=== PATIENT | female | born 1945 | race Caucasian/White ===

== ENCOUNTER 2017-11-17 16:29 | Emergency (ER) | payer MEDICARE ==
[2017-11-17 16:30] VITALS: BMI 30.7
[2017-11-17 17:09] VITALS: BP 174/94; PULSE 94; RESP 16; TEMP 97.8; O2SAT 98
--- NOTE | 2017-11-17 18:33 | ED PDOC ---
HPI: Female Pain Chief Complaint (Provider): Female Genitourinary History Per: Patient History/Exam Limitations: no limitations Onset/Duration Of Symptoms: Days (1x month), Worse Since (1x week) Current Symptoms Are (Timing): Still Present Severity: Moderate Additional Complaint(s): 72 year old female with a past medical history of hypertension presents to the ED with complaints of urinary symptoms that started 1x month ago. Patient states she has had increased frequency and urgency with urination for the past month, and mild dysuria for the past 1x week. Patient went to her PMD 1x month ago upon onset of symptoms and was prescribed pyridium and cipro, and has been off the antibiotics for 3x weeks but has had no improvement of symptoms. Patient denies having fevers or abdominal pain. PMD: Denys Pisano MD <Radha Cowan - Last Filed: 11/17/17 23:06> <Joellen Santos - Last Filed: 11/20/17 12:08> Time Seen by Provider: 11/17/17 17:20 Chief Complaint (Nursing): Female Genitourinary Past Medical History Reviewed: Historical Data, Nursing Documentation, Vital Signs Vital Signs: Last Vital Signs Temp 97.8 F 11/17/17 17:06 Pulse 94 H 11/17/17 17:06 Resp 16 11/17/17 17:06 BP 174/94 H 11/17/17 17:06 Pulse Ox 98 11/17/17 17:06 - Medical History PMH: Emphysema, HTN - Family History Family History: States: No Known Family Hx - Immunization History Hx Tetanus Toxoid Vaccination: No Hx Influenza Vaccination: No Hx Pneumococcal Vaccination: No <Radha Cowan - Last Filed: 11/17/17 23:06> Vital Signs: Last Vital Signs Temp 97.8 F 11/17/17 17:06 Pulse 94 H 11/17/17 17:06 Resp 16 11/17/17 17:06 BP 174/94 H 11/17/17 17:06 Pulse Ox 98 11/17/17 23:07 <Joellen Santos - Last Filed: 11/20/17 12:08> - Home Medications Home Medications: Ambulatory Orders Medication Instructions Recorded Acetaminophen/Hydrocodone Bi 1 tab PO QID PRN #15 tab 09/26/14 [Vicodin 300 mg-5 mg] Hydromorphone Hydrochloride 2 mg PO Q8 PRN #10 tab 11/11/13 [Dilaudid] Ondansetron HCl [Zofran] 4 mg PO Q6 PRN #14 ml 11/11/13 RX: Naproxen 375 mg PO Q8 PRN #15 tab 10/06/15 - Allergies Allergies/Adverse Reactions: Allergies Allergy/AdvReac Type Severity Reaction Status Date / Time No Known Allergies Allergy Verified 11/17/17 17:05 Review of Systems ROS Statement: Except As Marked, All Systems Reviewed And Found Negative Constitutional: Negative for: Fever Gastrointestinal: Negative for: Abdominal Pain Genitourinary Female: Positive for: Dysuria, Frequency (and urgency) <Radha Cowan S - Last Filed: 11/17/17 23:06> Physical Exam - Reviewed Nursing Documentation Reviewed: Yes Vital Signs Reviewed: Yes - Physical Exam Appears: Positive for: Well, Non-toxic, No Acute Distress Head Exam: Positive for: ATRAUMATIC, NORMOCEPHALIC Cardiovascular/Chest: Positive for: Regular Rate, Rhythm Respiratory: Positive for: Normal Breath Sounds Gastrointestinal/Abdominal: Positive for: Normal Exam, Soft, Other (mild suprapubic tenderness, otherwise abdomen is non tender.) Neurologic/Psych: Positive for: Alert, Oriented (3x) <Radha Cowan S - Last Filed: 11/17/17 23:06> - ECG O2 Sat by Pulse Oximetry: 98 (RA) Pulse Ox Interpretation: Normal <Radha Cowan S - Last Filed: 11/17/17 23:06> Medical Decision Making Medical Decision Makin:20 Initial impression: 72 year old female with urinary symptoms. Initial plan: * urinalysis * reevaluation * UA negative. * fingerstick 65 Pt. well appearing, abd. soft/nt, afebrile. Scribe Attestation: Documented by Joellen Romo, acting as a scribe for Radha Cowan PA-C. Provider Scribe Attestation: All medical record entries made by the Scribe were at my direction and personally dictated by me. I have reviewed the chart and agree that the record accurately reflects my personal performance of the history, physical exam, medical decision making, and the department course for this patient. I have also personally directed, reviewed, and agree with the discharge instructions and disposition. <Radha Cowan - Last Filed: 11/17/17 23:06> Disposition - Disposition Disposition: Routine/Home Disposition Time: 21:30 <Radha Cowan - Last Filed: 11/17/17 23:06> <Joellen Santos - Last Filed: 11/20/17 12:08> - Clinical Impression Clinical Impression: Cystitis - Disposition Condition: STABLE Forms: [facility] (Yoruba) Addendum Addendum: 11/20/17 12:08 reviewed PA chart. Agree with assessment and plan. <Joellen Santos - Last Filed: 11/20/17 12:08>
[2017-11-17 19:15] LABS: SQUAMOUS EPITHIAL 3 /hpf (0-5); URINE BACTERIA MANY (<OCC); URINE BILIRUBIN NEGATIVE (NEGATIVE); URINE BLOOD NEGATIVE (NEGATIVE); URINE CLARITY CLEAR (Clear); URINE COLOR YELLOW (YELLOW); URINE GLUCOSE (UA) NEG (Normal); URINE LEUKOCYTE ESTERASE NEG Leu/uL (Negative); URINE PROTEIN NEGATIVE (NEGATIVE); URINE UROBILINOGEN 0.2-1.0 mg/dL (0.2-1.0)
== END 2017-11-17 21:00 | disposition home or self-care (01) ==
LOC: H.ER 16:29
DX: N30.90 Cystitis, unspecified without hematuria (principal); I10 Essential (primary) hypertension

== ENCOUNTER 2018-03-15 10:18 | Inpatient (IN) | payer MEDICARE ==
[2018-03-15 10:18] VITALS: BMI 30.7
[2018-03-15] MEDS ORDERED: Albuterol-Ipratrop 3 mg / 0.5 (3 ml) UD IH STA ×2 (10:49→10:50)
--- NOTE | 2018-03-15 10:54 | ED PDOC ---
HPI: SOB/CHF/COPD Time Seen by Provider: 03/15/18 10:33 History Per: Patient Onset/Duration Of Symptoms: Days (2) Current Symptoms Are (Timing): Still Present Quality: Tightness Current Respiratory Medications: See Home Med List Severity: Moderate Associated Symptoms: Productive Cough. denies: Fever Recently: Treated By A Physician Additional Complaint(s): SOB assoc with wheezing and productive cough, worse since yesterday. Denies fever. No improvement with home nebs. Denies chest pain. Past Medical History Vital Signs: Last Vital Signs Temp 97.8 F 03/15/18 10:39 Pulse 102 H 03/15/18 10:39 Resp 26 H 03/15/18 10:39 BP 129/81 03/15/18 10:39 Pulse Ox 98 03/15/18 10:39 - Medical History PMH: Emphysema, HTN - Family History Family History: States: Unknown Family Hx - Immunization History Hx Tetanus Toxoid Vaccination: No Hx Influenza Vaccination: No Hx Pneumococcal Vaccination: No - Home Medications Home Medications: Ambulatory Orders Medication Instructions Recorded Albuterol 0.083% [Albuterol 0.083% 3 ml IH Q6 PRN 03/15/18 Inhal Stacia (2.5 mg/3 ml) UD] Albuterol Sulfate [Ventolin Hfa] 2 puff IH Q6 PRN 03/15/18 Budesonide/Formoterol Fumarate 2 puff IH Q12 03/15/18 [Symbicort 160-4.5 Mcg Inhaler] Losartan/Hydrochlorothiazide 1 tab PO DAILY 03/15/18 [Hyzaar 100-12.5 Tablet] Metoprolol Tartrate [Lopressor] 50 mg PO Q12 03/15/18 - Allergies Allergies/Adverse Reactions: Allergies Allergy/AdvReac Type Severity Reaction Status Date / Time No Known Allergies Allergy Verified 11/17/17 17:05 Review of Systems ROS Statement: Except As Marked, All Systems Reviewed And Found Negative Constitutional: Negative for: Fever, Chills Cardiovascular: Negative for: Chest Pain Respiratory: Positive for: Cough, Shortness of Breath, Wheezing Physical Exam - Reviewed Nursing Documentation Reviewed: Yes Vital Signs Reviewed: Yes - Physical Exam Appears: Positive for: Non-toxic, No Acute Distress Head Exam: Positive for: ATRAUMATIC, NORMAL INSPECTION, NORMOCEPHALIC Skin: Positive for: Normal Color, Warm, DRY Eye Exam: Positive for: EOMI, Normal appearance, PERRL ENT: Positive for: Normal ENT Inspection Neck: Positive for: Normal, Painless ROM Cardiovascular/Chest: Positive for: Regular Rate, Rhythm, Tachycardia Respiratory: Positive for: Decreased Breath Sounds, Rhonchi, Respiratory Distress (Mild). Negative for: Wheezing Gastrointestinal/Abdominal: Positive for: Normal Exam, Soft Back: Positive for: Normal Inspection Extremity: Positive for: Normal ROM. Negative for: Calf Tenderness, Swelling Neurologic/Psych: Positive for: Alert, Oriented - Laboratory Results Result Diagrams: 03/15/18 11:45 - ECG O2 Sat by Pulse Oximetry: 98 Medical Decision Making Medical Decision Making: SOB, wheezing, failed outpt tx. Will tx with nebs and steroids as well as vapotherm. Will r/o flu as well as pneumonia Disposition - Clinical Impression Clinical Impression: Moderate COPD (chronic obstructive pulmonary disease), Influenza A - Patient ED Disposition Is Patient to be Admitted: Yes - Disposition Disposition Time: 12:58 Condition: FAIR - Pt Status Changed To: Hospital Disposition Of: Inpatient - Admit Certification Admit to Inpatient:: After my assessment, the patient will require hospitalization for at least two midnights. This is because of the severity of symptoms shown, intensity of services needed, and/or the medical risk in this patient being treated as an outpatient. - POA Present On Arrival: None
[2018-03-15] MEDS ORDERED: Albuterol-Ipratrop 3 mg / 0.5 (3 ml) UD ONE (11:06)
--- NOTE | 2018-03-15 11:14 | RAD ---
Date of service: 03/15/2018 HISTORY: SOB, cough COMPARISON: 11/09/2013 TECHNIQUE: Chest PA and lateral FINDINGS: LUNGS: No active pulmonary disease. PLEURA: No significant pleural effusion identified. No pneumothorax apparent. CARDIOVASCULAR: There is presence of aortic atherosclerotic calcification on x-ray. Possible mild cardiomegaly No significant or acute findings to account for/ related to the clinical presentation. OSSEOUS STRUCTURES: Scoliosis VISUALIZED UPPER ABDOMEN: Normal. OTHER FINDINGS: None. IMPRESSION: No active disease. No interval pathology noted.
[2018-03-15 11:56] LABS: VENOUS BLOOD GAS BASE EXCESS 1.2 mmol/L (0.0-2.0); VENOUS BLOOD GAS PCO2 44 mmHg (40-60); VENOUS BLOOD GAS PO2 38 mm/Hg (30-55); VENOUS BLOOD PH 7.39 (7.32-7.43)
[2018-03-15 12:15] LABS: BASO # 0.1 K/uL (0.0-0.2); BASO % 0.6 % (0.0-2.0); EOS # 0.1 K/uL (0.0-0.7); HEMOGLOBIN 13.8 g/dL (12.0-16.0); LYMPH % 11.8 % (20.0-40.0); MEAN CELL VOLUME 90.5 fl (81.0-99.0); MEAN CORPUSCULAR HGB CONC 33.2 g/dL (33.0-37.0); MEAN PLATELET VOLUME 9.4 fl (7.2-11.7); MONO # 0.6 K/uL (0.0-0.8); MONO % 6.8 % (0.0-10.0); NEUT # 6.8 K/uL (1.8-7.0); NEUT % 79.8 % (50.0-75.0); RBC 4.6 Mil/uL (3.80-5.20); WHITE BLOOD COUNT 8.6 K/uL (4.8-10.8)
[2018-03-15] MEDS ORDERED: Sodium Chloride 0.9% 1,000 ML IV STA (12:54)
[2018-03-15 13:35] LABS: ALB/GLOB RATIO 1.1 (1.0-2.1); ALBUMIN 4.4 g/dL (3.5-5.0); ALT/SGPT 21 U/L (9-52); AST/SGOT 30 U/L (14-36); BLOOD UREA NITROGEN 32 mg/dl (7-17); CALCIUM 9.7 mg/dL (8.4-10.2); GFR NON-AFRICAN AMERICAN 55
[2018-03-15] MEDS ORDERED: Sodium Chloride 3% for Inhalation 4 ML VIAL.NEB IH PRN (16:20)
[2018-03-15] MEDS ORDERED: methylPREDNISolone 60 MG in Sodium Chloride 0.9% 50 ML IVPB SCH (17:00)
[2018-03-15] MEDS: Fluticasone-Salmeterol 100-50mcg Diskus IH SCH (18:15)
[2018-03-15] MEDS: levoFLOXacin 500 mg in D5W 500 MG/100 ML BAG IVPB SCH (18:16)
[2018-03-15] MEDS: Promethazine 12.5 mg/10 ml Syrup PO PRN (18:16)
--- NOTE | 2018-03-15 20:31 | CARD ---
APPROVED REPORT Date of service: 03/15/2018 EKG Measurement Heart [id number] <Conclusion> Sinus tachycardia Left axis deviation Left bundle branch block Abnormal ECG
[2018-03-16] MEDS: Albuterol-Ipratrop 3 mg / 0.5 (3 ml) UD INH SCH ×5 (00:27→19:25)
[2018-03-16 05:51] LABS: ABG ALLEN TEST YES; ARTERIAL BLOOD GAS HCO3 25.5 mmol/L (21-28); ARTERIAL BLOOD GAS HEMOGLOBIN 13.2 g/dL (11.7-17.4); ARTERIAL BLOOD GAS O2 CAPACITY 18.2 mL/dL (16-24); ARTERIAL BLOOD GAS O2 SAT 98.7 % (95-98); ARTERIAL BLOOD GAS PCO2 34 mm/Hg (35-45); ARTERIAL BLOOD GAS PH 7.46 (7.35-7.45); ARTERIAL BLOOD GAS PO2 97 mm/Hg (80-100); ARTERIAL BLOOD GAS TCO2 25.2 mmol/L (22-28)
[2018-03-16 07:20] LABS: BASO % 0.1 % (0.0-2.0); HEMOGLOBIN 12.4 g/dL (12.0-16.0); LYMPH # 0.8 K/uL (1.0-4.3); MEAN CELL VOLUME 89.8 fl (81.0-99.0); MEAN CORPUSCULAR HEMOGLOBIN 30.2 pg (27.0-31.0); MEAN CORPUSCULAR HGB CONC 33.6 g/dL (33.0-37.0); MEAN PLATELET VOLUME 9.1 fl (7.2-11.7); MONO # 0.1 K/uL (0.0-0.8); MONO % 2.2 % (0.0-10.0); NEUT # 3.3 K/uL (1.8-7.0); NEUT % 78.7 % (50.0-75.0); NRBC % 0.1 % (0.0-0.0); RBC 4.13 Mil/uL (3.80-5.20); RED CELL DISTRIBUTION WIDTH 12.9 % (11.5-14.5); WHITE BLOOD COUNT 4.2 K/uL (4.8-10.8)
[2018-03-16 07:30] LABS: ALB/GLOB RATIO 1.1 (1.0-2.1); ALT/SGPT 22 U/L (9-52); AST/SGOT 25 U/L (14-36); BLOOD UREA NITROGEN 29 mg/dl (7-17); CALCIUM 9.5 mg/dL (8.4-10.2); GFR NON-AFRICAN AMERICAN > 60
--- NOTE | 2018-03-16 08:42 | CP.PCM.HP ---
History of Present Illness - History of Present Illness History of Present Illness: 72 YR OLD FEMALE ADMITTED WITH PROGRESSIVELY WORSENING SHORTNESS OF BREATH,COUGH AND CHEST TIGHTNESS X SEVERAL DAYS.SHE WAS DIAGNOSED WITH FLU AND COPD EXACERBATION IN THE ER. HX OF COPD,HTN AND ANXIETY. 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[employer] Present on Admission - Present on Admission Any Indicators Present on Admission: No Past Patient History - Infectious Disease Hx of Infectious Diseases: None - Past Medical History & Family History Past Medical History?: Yes - Past Social History Smoking Status: Former Smoker - CARDIAC Hx Cardiac Disorders: Yes Hx Hypertension: Yes - PULMONARY Hx Respiratory Disorders: Yes Hx Chronic Obstructive Pulmonary Disease (COPD): Yes Hx Emphysema: Yes - NEUROLOGICAL Hx Neurological Disorder: No - HEENT Hx HEENT Problems: Yes Other/Comment: hard of hearing - RENAL Hx Chronic Kidney Disease: No - ENDOCRINE/METABOLIC Hx Endocrine Disorders: No - HEMATOLOGICAL/ONCOLOGICAL Hx Blood Disorders: No - INTEGUMENTARY Hx Dermatological Problems: No - MUSCULOSKELETAL/RHEUMATOLOGICAL Hx Musculoskeletal Disorders: No Hx Falls: No - GASTROINTESTINAL Hx Gastrointestinal Disorders: No - GENITOURINARY/GYNECOLOGICAL Hx Genitourinary Disorders: No - PSYCHIATRIC Hx Psychophysiologic Disorder: No Hx Substance Use: No - SURGICAL HISTORY Hx Surgeries: No - ANESTHESIA Hx Anesthesia: No Meds Allergies/Adverse Reactions: Allergies Allergy/AdvReac Type Severity Reaction Status Date / Time No Known Allergies Allergy Verified 11/17/17 17:05 Physical Exam - Constitutional Appears: No Acute Distress - Head Exam Head Exam: ATRAUMATIC, NORMAL INSPECTION, NORMOCEPHALIC - Eye Exam Eye Exam: EOMI, Normal appearance, PERRL Pupil Exam: NORMAL ACCOMODATION, PERRL - ENT Exam ENT Exam: Mucous Membranes Moist, Normal Exam - Neck Exam Neck exam: Positive for: Normal Inspection - Respiratory Exam Respiratory Exam: Decreased Breath Sounds, Prolonged Expiratory Phase, Rales, Wheezes - Cardiovascular Exam Cardiovascular Exam: REGULAR RHYTHM - GI/Abdominal Exam GI & Abdominal Exam: Normal Bowel Sounds, Soft. absent: Tenderness - Rectal Exam Rectal Exam: NORMAL INSPECTION - Extremities Exam Extremities exam: Positive for: normal inspection - Back Exam Back exam: NORMAL INSPECTION - Neurological Exam Neurological exam: Alert, CN II-XII Intact, Normal Gait, Oriented x3, Reflexes Normal - Psychiatric Exam Psychiatric exam: Normal Affect, Normal Mood - Skin Skin Exam: Dry, Intact, Normal Color, Warm Results - Vital Signs Recent Vital Signs: Last Vital Signs Temp 97.8 F 01/31/19 00:09 Pulse 80 03/16/18 00:28 Resp 18 03/16/18 07:29 BP 114/71 03/16/18 00:09 Pulse Ox 100 03/16/18 00:09 - Labs Result Diagrams: 03/16/18 06:25 03/16/18 06:25 Labs: Laboratory Results - last 24 hr 03/15/18 03/15/18 03/15/18 11:45 11:45 11:45 WBC 8.6 RBC 4.60 Hgb 13.8 Hct 41.6 MCV 90.5 MCH 30.0 MCHC 33.2 RDW 13.0 Plt Count 251 MPV 9.4 Neut % (Auto) 79.8 H Lymph % (Auto) 11.8 L Cass % (Auto) 6.8 Eos % (Auto) 1.0 Baso % (Auto) 0.6 Neut # (Auto) 6.8 Lymph # (Auto) 1.0 Cass # (Auto) 0.6 Eos # (Auto) 0.1 Baso # (Auto) 0.1 pCO2 pO2 38 HCO3 ABG pH ABG Total CO2 ABG O2 Saturation ABG O2 Content ABG Base Excess ABG Hemoglobin ABG Carboxyhemoglobin POC ABG HHb (Measured) ABG Methemoglobin ABG O2 Capacity Carloz Test VBG pH 7.39 VBG pCO2 44 VBG HCO3 25.2 VBG Total CO2 28.0 VBG O2 Sat (Calc) 74.2 H VBG Base Excess 1.2 VBG Potassium 3.7 A-a O2 Difference Hgb O2 Saturation Sodium 134.0 Chloride 100.0 Glucose 107 H Lactate 2.0 Liter Flow Vent Mode FiO2 21.0 Potassium Carbon Dioxide Anion Gap BUN Creatinine Est GFR ( Amer) Est GFR (Non-Af Amer) Random Glucose Calcium Total Bilirubin AST ALT Alkaline Phosphatase Troponin I Total Protein Albumin Globulin Albumin/Globulin Ratio Venous Blood Potassium 3.7 Influenza Typ A,B (EIA) Pos for influenza a H 03/15/18 03/16/18 03/16/18 13:19 05:42 06:25 WBC 4.2 L D RBC 4.13 Hgb 12.4 Hct 37.1 MCV 89.8 MCH 30.2 MCHC 33.6 RDW 12.9 Plt Count 219 MPV 9.1 Neut % (Auto) 78.7 H Lymph % (Auto) 19.0 L Cass % (Auto) 2.2 Eos % (Auto) 0.0 Baso % (Auto) 0.1 Neut # (Auto) 3.3 Lymph # (Auto) 0.8 L Cass # (Auto) 0.1 Eos # (Auto) 0.0 Baso # (Auto) 0.0 pCO2 34 L pO2 97 HCO3 25.5 ABG pH 7.46 H ABG Total CO2 25.2 ABG O2 Saturation 98.7 H ABG O2 Content 18.0 ABG Base Excess 0.8 ABG Hemoglobin 13.2 ABG Carboxyhemoglobin 1.0 POC ABG HHb (Measured) 1.3 ABG Methemoglobin 1.0 ABG O2 Capacity 18.2 Carolz Test Yes VBG pH VBG pCO2 VBG HCO3 VBG Total CO2 VBG O2 Sat (Calc) VBG Base Excess VBG Potassium A-a O2 Difference 146.0 Hgb O2 Saturation 96.7 Sodium 137 Chloride 95 L Glucose Lactate Liter Flow 20 Vent Mode High flow lpm FiO2 40.0 Potassium 3.5 L Carbon Dioxide 26 Anion Gap 20 BUN 32 H Creatinine 1.0 Est GFR ( Amer) > 60 Est GFR (Non-Af Amer) 55 Random Glucose 107 H Calcium 9.7 Total Bilirubin 0.6 AST 30 ALT 21 Alkaline Phosphatase 110 Troponin I 0.0210 Total Protein 8.2 Albumin 4.4 Globulin 3.9 Albumin/Globulin Ratio 1.1 Venous Blood Potassium Influenza Typ A,B (EIA) 03/16/18 06:25 WBC RBC Hgb Hct MCV MCH MCHC RDW Plt Count MPV Neut % (Auto) Lymph % (Auto) Cass % (Auto) Eos % (Auto) Baso % (Auto) Neut # (Auto) Lymph # (Auto) Cass # (Auto) Eos # (Auto) Baso # (Auto) pCO2 pO2 HCO3 ABG pH ABG Total CO2 ABG O2 Saturation ABG O2 Content ABG Base Excess ABG Hemoglobin ABG Carboxyhemoglobin POC ABG HHb (Measured) ABG Methemoglobin ABG O2 Capacity Carloz Test VBG pH VBG pCO2 VBG HCO3 VBG Total CO2 VBG O2 Sat (Calc) VBG Base Excess VBG Potassium A-a O2 Difference Hgb O2 Saturation Sodium 136 Chloride 97 L Glucose Lactate Liter Flow Vent Mode FiO2 Potassium 3.8 Carbon Dioxide 25 Anion Gap 18 BUN 29 H Creatinine 0.8 Est GFR ( Amer) > 60 Est GFR (Non-Af Amer) > 60 Random Glucose 163 H Calcium 9.5 Total Bilirubin 0.2 AST 25 ALT 22 Alkaline Phosphatase 85 Troponin I Total Protein 7.5 Albumin 4.0 Globulin 3.5 Albumin/Globulin Ratio 1.1 Venous Blood Potassium Influenza Typ A,B (EIA) Assessment & Plan - Assessment and Plan (Free Text) Assessment: ACUTE EXACERBATION OF COPD INFLUENZA HYPERTENSION Plan: CONTINUE RX ORDERED - Date & Time Date: 03/16/18 Time: 08:44
[2018-03-16] MEDS ORDERED: Patient's Own Med (Losartan/Hydrochlorothiazide [Hyzaar 100-12.5 Tablet] 1 TAB) PO SCH (09:00)
[2018-03-16] MEDS: Fluticasone-Salmeterol 100-50mcg Diskus IH SCH ×2 (10:13→16:31)
[2018-03-16] MEDS: levoFLOXacin 500 mg in D5W 500 MG/100 ML BAG IVPB SCH (10:14)
[2018-03-17] MEDS: Albuterol-Ipratrop 3 mg / 0.5 (3 ml) UD INH SCH ×4 (01:01→19:11)
[2018-03-17] MEDS: levoFLOXacin 500 mg in D5W 500 MG/100 ML BAG IVPB SCH (11:04)
[2018-03-17] MEDS: Fluticasone-Salmeterol 100-50mcg Diskus IH SCH ×2 (11:06→16:02)
--- NOTE | 2018-03-17 12:33 | CP.PCM.PN ---
Subjective - Date & Time of Evaluation Date of Evaluation: 03/17/18 Time of Evaluation: 12:33 - Subjective Subjective: C/O BACK PAINS AND SORE THROAT COUGH IMPROVED Objective - Vital Signs/Intake and Output Vital Signs (last 24 hours): Temp Pulse Resp BP Pulse Ox 98 F 97 H 20 96/58 L 98 03/17/18 08:20 03/17/18 11:30 03/17/18 08:20 03/17/18 11:30 03/17/18 08:20 - Medications Medications: Current Medications Acetaminophen (Tylenol 325mg Tab) 650 mg PO Q4 PRN PRN Reason: Headache Last Admin: 03/15/18 18:40 Dose: 650 mg Acetaminophen (Tylenol 325mg Tab) 650 mg PO Q6 PRN PRN Reason: Pain, moderate (4-7) Last Admin: 03/16/18 20:37 Dose: 650 mg Albuterol/Ipratropium (Duoneb 3 Mg/0.5 Mg (3 Ml) Ud) 3 ml INH RQ6 CONNIE Last Admin: 03/17/18 07:00 Dose: 3 ml Hydrochlorothiazide (Microzide) 12.5 mg PO DAILY [facility] Last Admin: 03/17/18 11:30 Dose: Not Given Levofloxacin/Dextrose (Levaquin 500mg) 500 mg in 100 mls @ 100 mls/hr IVPB DAILY CONNIE; Protocol Last Admin: 03/17/18 11:04 Dose: 100 mls/hr Losartan Potassium (Cozaar) 100 mg PO DAILY [facility] Last Admin: 03/17/18 11:29 Dose: Not Given Methylprednisolone (Solu-Medrol) 60 mg IVP Q8 CONNIE Last Admin: 03/17/18 11:32 Dose: 60 mg Metoprolol Tartrate (Lopressor) 50 mg PO Q12 CONNIE Last Admin: 03/17/18 11:30 Dose: Not Given Oseltamivir Phosphate (Tamiflu Cap) 75 mg PO BID CONNIE; Protocol Last Admin: 03/17/18 11:05 Dose: 75 mg Promethazine HCl (Phenergan Syrup) 12.5 mg PO Q6 PRN PRN Reason: Cough Last Admin: 03/15/18 18:16 Dose: 12.5 mg Fluticasone/Salmeterol (Advair Diskus 100/50) 1 puff IH BID [facility] Last Admin: 03/17/18 11:06 Dose: 1 puff - Labs Labs: 03/16/18 06:25 03/16/18 06:25 - Constitutional Appears: No Acute Distress - Head Exam Head Exam: ATRAUMATIC, NORMAL INSPECTION, NORMOCEPHALIC - Eye Exam Eye Exam: EOMI, Normal appearance, PERRL Pupil Exam: NORMAL ACCOMODATION, PERRL - ENT Exam ENT Exam: Mucous Membranes Moist, Normal Exam - Neck Exam Neck Exam: Full ROM, Normal Inspection. absent: Lymphadenopathy - Respiratory Exam Respiratory Exam: Prolonged Expiratory Phase, Wheezes, NORMAL BREATHING PATTERN - Cardiovascular Exam Cardiovascular Exam: REGULAR RHYTHM, +S1, +S2. absent: Murmur - GI/Abdominal Exam GI & Abdominal Exam: Soft, Normal Bowel Sounds. absent: Tenderness - Rectal Exam Rectal Exam: NORMAL INSPECTION - Extremities Exam Extremities Exam: Full ROM, Normal Capillary Refill, Normal Inspection. absent: Joint Swelling, Pedal Edema - Back Exam Back Exam: NORMAL INSPECTION - Neurological Exam Neurological Exam: Alert, Awake, CN II-XII Intact, Normal Gait, Oriented x3 - Psychiatric Exam Psychiatric exam: Normal Affect, Normal Mood - Skin Skin Exam: Dry, Intact, Normal Color, Warm Assessment and Plan - Assessment and Plan (Free Text) Assessment: ACUTE EXAC OF COPD FLU HTN Plan: CONTINUE RX ORDERED
[2018-03-17] MEDS: Phenol 1.4% Throat Spray MT SCH ×2 (15:59→16:03)
[2018-03-17] MEDS: Promethazine 12.5 mg/10 ml Syrup PO PRN (21:43)
[2018-03-18] MEDS: Albuterol-Ipratrop 3 mg / 0.5 (3 ml) UD INH SCH ×4 (01:01→19:21)
[2018-03-18] MEDS: levoFLOXacin 500 mg in D5W 500 MG/100 ML BAG IVPB SCH (10:32)
[2018-03-18] MEDS: Fluticasone-Salmeterol 100-50mcg Diskus IH SCH ×2 (11:13→18:58)
--- NOTE | 2018-03-18 11:49 | CP.PCM.PN ---
Subjective - Date & Time of Evaluation Date of Evaluation: 03/18/18 Time of Evaluation: 11:49 - Subjective Subjective: FEELS BETTER SOB AND COUGH IMPROVED Objective - Vital Signs/Intake and Output Vital Signs (last 24 hours): Temp Pulse Resp BP Pulse Ox 97.6 F 89 19 138/73 100 03/18/18 08:28 03/18/18 10:36 03/18/18 11:05 03/18/18 10:36 03/18/18 08:28 - Medications Medications: Current Medications Acetaminophen (Tylenol 325mg Tab) 650 mg PO Q4 PRN PRN Reason: Headache Last Admin: 03/15/18 18:40 Dose: 650 mg Acetaminophen (Tylenol 325mg Tab) 650 mg PO Q6 PRN PRN Reason: Pain, moderate (4-7) Last Admin: 03/16/18 20:37 Dose: 650 mg Albuterol/Ipratropium (Duoneb 3 Mg/0.5 Mg (3 Ml) Ud) 3 ml INH RQ6 CONNIE Last Admin: 03/18/18 07:07 Dose: 3 ml Hydrochlorothiazide (Microzide) 12.5 mg PO DAILY [facility] Last Admin: 03/18/18 10:33 Dose: 12.5 mg Levofloxacin/Dextrose (Levaquin 500mg) 500 mg in 100 mls @ 100 mls/hr IVPB DAILY [facility]; Protocol Last Admin: 03/18/18 10:32 Dose: 100 mls/hr Losartan Potassium (Cozaar) 100 mg PO DAILY [facility] Last Admin: 03/18/18 10:27 Dose: 100 mg Methylprednisolone (Solu-Medrol) 60 mg IVP Q8 CONNIE Last Admin: 03/18/18 10:37 Dose: 60 mg Metoprolol Tartrate (Lopressor) 50 mg PO Q12 CONNIE Last Admin: 03/18/18 10:36 Dose: 50 mg Naproxen (Naprosyn Tab) 250 mg PO Q8 CONNIE Last Admin: 03/18/18 10:33 Dose: 250 mg Oseltamivir Phosphate (Tamiflu Cap) 75 mg PO BID CONNIE; Protocol Last Admin: 03/18/18 10:34 Dose: 75 mg Phenol/Menthol (Phenaseptic 1.4% Throat [place]) 1 spry MT TID [facility] Last Admin: 03/17/18 16:03 Dose: 1 spr Promethazine HCl (Phenergan Syrup) 12.5 mg PO Q6 PRN PRN Reason: Cough Last Admin: 03/17/18 21:43 Dose: 12.5 mg Fluticasone/Salmeterol (Advair Diskus 100/50) 1 puff IH BID CONNIE Last Admin: 03/18/18 11:13 Dose: 1 puff - Labs Labs: 03/16/18 06:25 03/16/18 06:25 - Constitutional Appears: No Acute Distress - Head Exam Head Exam: ATRAUMATIC, NORMAL INSPECTION, NORMOCEPHALIC - Eye Exam Eye Exam: EOMI, Normal appearance, PERRL Pupil Exam: NORMAL ACCOMODATION, PERRL - ENT Exam ENT Exam: Mucous Membranes Moist, Normal Exam - Neck Exam Neck Exam: Full ROM, Normal Inspection. absent: Lymphadenopathy - Respiratory Exam Respiratory Exam: Clear to Ausculation Bilateral, Prolonged Expiratory Phase, NORMAL BREATHING PATTERN - Cardiovascular Exam Cardiovascular Exam: REGULAR RHYTHM, +S1, +S2. absent: Murmur - GI/Abdominal Exam GI & Abdominal Exam: Soft, Normal Bowel Sounds. absent: Tenderness - Rectal Exam Rectal Exam: NORMAL INSPECTION - Extremities Exam Extremities Exam: Full ROM, Normal Capillary Refill, Normal Inspection. absent: Joint Swelling, Pedal Edema - Back Exam Back Exam: NORMAL INSPECTION - Neurological Exam Neurological Exam: Alert, Awake, CN II-XII Intact, Normal Gait, Oriented x3 - Psychiatric Exam Psychiatric exam: Normal Affect, Normal Mood - Skin Skin Exam: Dry, Intact, Normal Color, Warm Assessment and Plan - Assessment and Plan (Free Text) Assessment: COPD IMPROVING FLU HTN Plan: TAPER STEROIDS D/C HIGH FLOW O2 BEGIN O2 VIA NC D/C IN AM IF STABLE
[2018-03-18] MEDS ORDERED: MethylPREDNISolone 40 mg Vial IVP SCH (12:00)
[2018-03-18] MEDS ORDERED: methylPREDNISolone 40 MG in Sodium Chloride 0.9% 50 ML IVPB SCH (12:00)
[2018-03-18] MEDS: Phenol 1.4% Throat Spray MT SCH ×2 (16:22→19:00)
[2018-03-18] MEDS: MethylPREDNISolone 40 mg Vial IVP SCH (21:18)
[2018-03-19 01:03] VITALS: RESP 18
[2018-03-19] MEDS: Albuterol-Ipratrop 3 mg / 0.5 (3 ml) UD INH SCH ×2 (01:05→08:54)
[2018-03-19] MEDS: Fluticasone-Salmeterol 100-50mcg Diskus IH SCH (08:59)
[2018-03-19] MEDS: levoFLOXacin 500 mg in D5W 500 MG/100 ML BAG IVPB SCH (08:59)
[2018-03-19] MEDS: Phenol 1.4% Throat Spray MT SCH (09:02)
[2018-03-19] MEDS: MethylPREDNISolone 40 mg Vial IVP SCH (09:09)
[2018-03-19 09:10] VITALS: BP 143/77; PULSE 86; TEMP 98; O2SAT 94
--- NOTE | 2018-03-19 11:05 | CP.PCM.DIS ---
Provider - Provider Date of Admission: 03/15/18 12:55 Attending physician: Denys Garcia MD Time Spent in preparation of Discharge (in minutes): 30 Diagnosis - Discharge Diagnosis (1) Influenza A Status: Resolved Priority: High Comment: influenza treated with tamiflu. symptoms resolved (2) Moderate COPD (chronic obstructive pulmonary disease) Status: Acute Priority: High Comment: symptoms of sob and hypoxemia improved with rx. will d/c home today on appropriate meds. no need for home o2 since hypoxemia has resolved Hospital Course - Lab Results Lab Results: Micro Results 03/16/18 12:15 Sputum Gram Stain - Final 03/16/18 12:15 Sputum Sputum Culture - Final NORMAL ORAL LI 03/15/18 11:45 Blood Blood Culture - Preliminary NO GROWTH AFTER 3 DAYS Most Recent Lab Values WBC 4.2 K/uL (4.8-10.8) L D 03/16/18 06:25 RBC 4.13 Mil/uL (3.80-5.20) 03/16/18 06:25 Hgb 12.4 g/dL (12.0-16.0) 03/16/18 06:25 Hct 37.1 % (34.0-47.0) 03/16/18 06:25 MCV 89.8 fl (81.0-99.0) 03/16/18 06:25 MCH 30.2 pg (27.0-31.0) 03/16/18 06:25 MCHC 33.6 g/dL (33.0-37.0) 03/16/18 06:25 RDW 12.9 % (11.5-14.5) 03/16/18 06:25 Plt Count 219 K/uL (130-400) 03/16/18 06:25 MPV 9.1 fl (7.2-11.7) 03/16/18 06:25 Neut % (Auto) 78.7 % (50.0-75.0) H 03/16/18 06:25 Lymph % (Auto) 19.0 % (20.0-40.0) L 03/16/18 06:25 Saunders % (Auto) 2.2 % (0.0-10.0) 03/16/18 06:25 Eos % (Auto) 0.0 % (0.0-4.0) 03/16/18 06:25 Baso % (Auto) 0.1 % (0.0-2.0) 03/16/18 06:25 Neut # (Auto) 3.3 K/uL (1.8-7.0) 03/16/18 06:25 Lymph # (Auto) 0.8 K/uL (1.0-4.3) L 03/16/18 06:25 Saunders # (Auto) 0.1 K/uL (0.0-0.8) 03/16/18 06:25 Eos # (Auto) 0.0 K/uL (0.0-0.7) 03/16/18 06:25 Baso # (Auto) 0.0 K/uL (0.0-0.2) 03/16/18 06:25 pCO2 34 mm/Hg (35-45) L 03/16/18 05:42 pO2 97 mm/Hg (80-100) 03/16/18 05:42 HCO3 25.5 mmol/L (21-28) 03/16/18 05:42 ABG pH 7.46 (7.35-7.45) H 03/16/18 05:42 ABG Total CO2 25.2 mmol/L (22-28) 03/16/18 05:42 ABG O2 Saturation 98.7 % (95-98) H 03/16/18 05:42 ABG O2 Content 18.0 ML/dL (15-23) 03/16/18 05:42 ABG Base Excess 0.8 mmol/L (-2.0-3.0) 03/16/18 05:42 ABG Hemoglobin 13.2 g/dL (11.7-17.4) 03/16/18 05:42 ABG Carboxyhemoglobin 1.0 % (0.5-1.5) 03/16/18 05:42 POC ABG HHb (Measured) 1.3 % (0.0-5.0) 03/16/18 05:42 ABG Methemoglobin 1.0 % (0.0-3.0) 03/16/18 05:42 ABG O2 Capacity 18.2 mL/dL (16-24) 03/16/18 05:42 Carloz Test Yes 03/16/18 05:42 VBG pH 7.39 (7.32-7.43) 03/15/18 11:45 VBG pCO2 44 mmHg (40-60) 03/15/18 11:45 VBG HCO3 25.2 mmol/L 03/15/18 11:45 VBG Total CO2 28.0 mmol/L (22-28) 03/15/18 11:45 VBG O2 Sat (Calc) 74.2 % (40-65) H 03/15/18 11:45 VBG Base Excess 1.2 mmol/L (0.0-2.0) 03/15/18 11:45 VBG Potassium 3.7 mmol/L (3.6-5.2) 03/15/18 11:45 A-a O2 Difference 146.0 mm/Hg 03/16/18 05:42 Hgb O2 Saturation 96.7 % (95.0-98.0) 03/16/18 05:42 Sodium 134.0 mmol/L (132-148) 03/15/18 11:45 Chloride 100.0 mmol/L (98-107) 03/15/18 11:45 Glucose 107 mg/dL (65-105) H 03/15/18 11:45 Lactate 2.0 mmol/L (0.7-2.1) 03/15/18 11:45 Liter Flow 20 03/16/18 05:42 Vent Mode High flow lpm 03/16/18 05:42 FiO2 40.0 % 03/16/18 05:42 Sodium 136 mmol/l (132-148) 03/16/18 06:25 Potassium 3.8 MMOL/L (3.6-5.0) 03/16/18 06:25 Chloride 97 mmol/L (98-107) L 03/16/18 06:25 Carbon Dioxide 25 mmol/L (22-30) 03/16/18 06:25 Anion Gap 18 (10-20) 03/16/18 06:25 BUN 29 mg/dl (7-17) H 03/16/18 06:25 Creatinine 0.8 mg/dl (0.7-1.2) 03/16/18 06:25 Est GFR ( Amer) > 60 03/16/18 06:25 Est GFR (Non-Af Amer) > 60 03/16/18 06:25 Random Glucose 163 mg/dL (65-105) H 03/16/18 06:25 Calcium 9.5 mg/dL (8.4-10.2) 03/16/18 06:25 Total Bilirubin 0.2 mg/dl (0.2-1.3) 03/16/18 06:25 AST 25 U/L (14-36) 03/16/18 06:25 ALT 22 U/L (9-52) 03/16/18 06:25 Alkaline Phosphatase 85 U/L (38-126) 03/16/18 06:25 Troponin I 0.0210 ng/mL (0.00-0.120) 03/15/18 13:19 Total Protein 7.5 G/DL (6.3-8.2) 03/16/18 06:25 Albumin 4.0 g/dL (3.5-5.0) 03/16/18 06:25 Globulin 3.5 gm/dL (2.2-3.9) 03/16/18 06:25 Albumin/Globulin Ratio 1.1 (1.0-2.1) 03/16/18 06:25 Venous Blood Potassium 3.7 mmol/L (3.6-5.2) 03/15/18 11:45 Influenza Typ A,B (EIA) Pos for influenza a (NEGATIVE) H 03/15/18 11:45 - Hospital Course Hospital Course: shortness of breath resolved cough improved afebrile Discharge Exam - Head Exam Head Exam: ATRAUMATIC, NORMAL INSPECTION, NORMOCEPHALIC - Eye Exam Eye Exam: EOMI, Normal appearance, PERRL Pupil Exam: NORMAL ACCOMODATION, PERRL - GI/Abdominal Exam GI & Abdominal Exam: Normal Bowel Sounds - Rectal Exam Rectal Exam: NORMAL INSPECTION - Neurological Exam Neurological exam: Alert, CN II-XII Intact, Normal Gait, Oriented x3, Reflexes Normal - Psychiatric Exam Psychiatric exam: Normal Affect, Normal Mood - Skin Skin Exam: Dry, Intact, Normal Color, Warm Discharge Plan - Follow Up Plan Condition: FAIR Disposition: HOME/ ROUTINE Instructions: Flu, Adult (DC) Additional Instructions: d/c today follow up with dr garcia
== END 2018-03-19 12:25 | disposition home or self-care (01) | DRG 194 ==
LOC: H.ER 10:18 → H.ERHOLD 12:55 → H.MEDSURG1 13:53
PROVIDERS: ADMIT Internal Medicine Pulmonary Disease; ATTEND Internal Medicine Pulmonary Disease
DX: J10.1 Influenza due to other identified influenza virus with other respiratory manifestations (principal); J44.1 Chronic obstructive pulmonary disease with (acute) exacerbation; I10 Essential (primary) hypertension; H91.90 Unspecified hearing loss, unspecified ear; Z87.891 Personal history of nicotine dependence; R09.02 Hypoxemia; F41.9 Anxiety disorder, unspecified; Z79.51 Long term (current) use of inhaled steroids

== ENCOUNTER 2018-04-06 08:43 | Inpatient (IN) | payer MEDICARE ==
[2018-04-06 09:05] VITALS: BMI 47.4
[2018-04-06] MEDS ORDERED: Albuterol-Ipratrop 3 mg / 0.5 (3 ml) UD INH STA ×3 (09:15→09:18)
--- NOTE | 2018-04-06 09:21 | ED PDOC ---
HPI: SOB/CHF/COPD Time Seen by Provider: 04/06/18 09:03 Chief Complaint (Nursing): Shortness Of Breath Chief Complaint (Provider): Shortness of breath History Per: Patient History/Exam Limitations: no limitations Onset/Duration Of Symptoms: Days (1) Current Symptoms Are (Timing): Still Present Quality: Tightness Associated Symptoms: denies: Fever, Chills, Chest Pain Additional History Per: Patient Additional Complaint(s): 73yo female, with history of COPD, comes to ER reporting cough x 3 days and worsening shortness of breath since last night. Patient states she used 3 nebulizer treatments, with no relief of symptoms. She reports the cough is productive with phlegm; denies any blood in the phlegm. Patient denies any vomiting, chest pain, fever, or abdominal pain. No additional complaints. PMD: Denys Pisano I Past Medical History Reviewed: Historical Data, Nursing Documentation, Vital Signs Vital Signs: Last Vital Signs Temp Pulse Resp BP Pulse Ox 100 04/06/18 09:12 - Medical History PMH: COPD, Emphysema, HTN Denies: Chronic Kidney Disease - Surgical History Surgical History: No Surg Hx - Family History Family History: States: No Known Family Hx - Living Arrangements Living Arrangements: With Family - Social History Current smoker - smoking cessation education provided: No Alcohol: None Drugs: Denies - Immunization History Hx Tetanus Toxoid Vaccination: No Hx Influenza Vaccination: No Hx Pneumococcal Vaccination: No - Home Medications Home Medications: Ambulatory Orders Medication Instructions Recorded Albuterol 0.083% [Albuterol 0.083% 3 ml IH Q6 PRN 03/15/18 Inhal Stacia (2.5 mg/3 ml) UD] Budesonide/Formoterol Fumarate 2 puff IH Q12 03/15/18 [Symbicort 160-4.5 Mcg Inhaler] Losartan/Hydrochlorothiazide 1 tab PO DAILY 03/15/18 [Hyzaar 100-12.5 Tablet] Metoprolol Tartrate [Lopressor] 50 mg PO Q12 03/15/18 Albuterol Sulfate [Proair Hfa] 2 puff IH Q6 PRN 04/06/18 - Allergies Allergies/Adverse Reactions: Allergies Allergy/AdvReac Type Severity Reaction Status Date / Time No Known Allergies Allergy Verified 11/17/17 17:05 Wells Criteria for PE - Wells Criteria for Pulmonary Embolism Clinical Signs and Symptoms of DVT: No P.E is #1 Diagnosis, or Equally Likely: No Heart Rate >100: No Immobilization at least 3 days;Surgery previous 4 weeks: No Previous, objectively diagnosed PE or DVT: No Hemoptysis: No Malignancy w/treatment within 6 months, or palliative: No Total Score: 0 Review of Systems ROS Statement: Except As Marked, All Systems Reviewed And Found Negative Constitutional: Negative for: Fever, Chills Cardiovascular: Negative for: Chest Pain Respiratory: Positive for: Cough, Shortness of Breath, Sputum Gastrointestinal: Negative for: Abdominal Pain Physical Exam - Reviewed Nursing Documentation Reviewed: Yes Vital Signs Reviewed: Yes - Physical Exam Appears: Positive for: Non-toxic, Uncomfortable Head Exam: Positive for: ATRAUMATIC, NORMAL INSPECTION, NORMOCEPHALIC Skin: Positive for: Normal Color, Warm Eye Exam: Positive for: Normal appearance, EOMI, PERRL ENT: Positive for: Normal ENT Inspection. Negative for: Pharyngeal Erythema Neck: Positive for: Normal, Supple Cardiovascular/Chest: Positive for: Regular Rate, Rhythm, Tachycardia Respiratory: Positive for: Wheezing (diffuse bilateral expiratory wheeze), Respiratory Distress (mild respiratory distress; tachypneic) Pulses-Radial (L): 2+ Pulses-Radial (R): 2+ Gastrointestinal/Abdominal: Positive for: Normal Exam, Soft. Negative for: Tenderness Back: Positive for: Normal Inspection. Negative for: L CVA Tenderness, R CVA Tenderness Extremity: Positive for: Normal ROM. Negative for: Pedal Edema Neurologic/Psych: Positive for: Alert, Oriented. Negative for: Motor/Sensory Deficits - Laboratory Results Result Diagrams: 04/06/18 09:20 04/06/18 09:20 - ECG ECG: Positive for: Interpreted By Me, Viewed By Me ECG Rhythm: Positive for: Sinus Rhythm, Left Bundle Branch Block, Nonspecific Changes Rate: 100 O2 Sat by Pulse Oximetry: 100 (O2 via NC) Pulse Ox Interpretation: Normal - Radiology X-Ray: Interpreted by Me, Viewed By Me X-Ray Interpretation: COPD Medical Decision Making Medical Decision Making: Impression: Shortness of breath r/o COPD exacerbation, bronchitis, penumonia Plan: -- Labs -- EKG -- CXR -- DUoneb 3ml INH x 3 -- Solumedrol 125mg IVP 1006 Labs reviewed, troponin < 0.012; BNP [address] Pisano, who states patient to be admitted under his service. Plan of care discussed with patient, who is agreeable. Scribe Attestation: Documented by Tea Oneil acting as a scribe for Selma Pendleton MD Provider Attestation: All medical record entries made by the Scribe were at my direction and personally dictated by me. I have reviewed the chart and agree that the record accurately reflects my personal performance of the history, physical exam, medical decision making, and the department course for this patient. I have also personally directed, reviewed, and agree with the discharge instructions and disposition. Disposition - Clinical Impression Clinical Impression: COPD exacerbation - Patient ED Disposition Is Patient to be Admitted: Yes Discussed With Dr.: Denys Pisano Doctor Will See Patient In The: Hospital Counseled Patient/Family Regarding: Studies Performed, Diagnosis - Disposition Disposition Time: 10:15 Condition: FAIR - Pt Status Changed To: Hospital Disposition Of: Inpatient - Admit Certification Admit to Inpatient:: After my assessment, the patient will require hospitalization for at least two midnights. This is because of the severity of symptoms shown, intensity of services needed, and/or the medical risk in this patient being treated as an outpatient. - POA Present On Arrival: None
[2018-04-06 09:34] LABS: ABG ALLEN TEST YES; ARTERIAL BLOOD GAS HCO3 26.5 mmol/L (21-28); ARTERIAL BLOOD GAS HEMOGLOBIN 12.2 g/dL (11.7-17.4); ARTERIAL BLOOD GAS O2 CAPACITY 16.6 mL/dL (16-24); ARTERIAL BLOOD GAS O2 CONTENT 16.5 ML/dL (15-23); ARTERIAL BLOOD GAS O2 SAT 99.2 % (95-98); ARTERIAL BLOOD GAS PCO2 34 mm/Hg (35-45); ARTERIAL BLOOD GAS PH 7.48 (7.35-7.45); ARTERIAL BLOOD GAS PO2 86 mm/Hg (80-100); ARTERIAL BLOOD GAS TCO2 26.3 mmol/L (22-28)
[2018-04-06 09:37] LABS: BASO % 0.6 % (0.0-2.0); EOS # 0.3 K/uL (0.0-0.7); EOS % 4.5 % (0.0-4.0); HEMOGLOBIN 12.4 g/dL (12.0-16.0); LYMPH # 1.3 K/uL (1.0-4.3); LYMPH % 19.9 % (20.0-40.0); MEAN CELL VOLUME 88.4 fl (81.0-99.0); MEAN CORPUSCULAR HEMOGLOBIN 29.8 pg (27.0-31.0); MEAN CORPUSCULAR HGB CONC 33.7 g/dL (33.0-37.0); MONO # 0.5 K/uL (0.0-0.8); MONO % 7.4 % (0.0-10.0); NEUT # 4.4 K/uL (1.8-7.0); NEUT % 67.6 % (50.0-75.0); NRBC % 0.2 % (0.0-0.0); RBC 4.16 Mil/uL (3.80-5.20); RED CELL DISTRIBUTION WIDTH 13.4 % (11.5-14.5); WHITE BLOOD COUNT 6.6 K/uL (4.8-10.8)
[2018-04-06 09:47] LABS: BLOOD UREA NITROGEN 22 mg/dl (7-17); CALCIUM 9.8 mg/dL (8.4-10.2); GFR NON-AFRICAN AMERICAN > 60
[2018-04-06 09:57] LABS: B-TYPE NATRIURETIC PEPTIDE 177 pg/ml (0-900)
[2018-04-06] MEDS ORDERED: levoFLOXacin 500 mg in D5W 500 MG/100 ML BAG IVPB STA (10:15)
[2018-04-06] MEDS ORDERED: levoFLOXacin 500 mg in D5W 500 MG/100 ML BAG IVPB ONE (10:37)
--- NOTE | 2018-04-06 12:43 | RAD ---
Date of service: 04/06/2018 PROCEDURE: CHEST RADIOGRAPH, 1 VIEW HISTORY: SOB wheezing COMPARISON: 03/15/2018. FINDINGS: LUNGS: Clear. PLEURA: No pneumothorax or pleural fluid seen. CARDIOVASCULAR: Atherosclerotic calcifications identified primarily aortic arch. No radiographic findings to suggest acute or significant cardiovascular disease. OSSEOUS STRUCTURES: No significant abnormalities. VISUALIZED UPPER ABDOMEN: Normal. OTHER FINDINGS: None. IMPRESSION: No active disease. No acute/significant interval changes.
[2018-04-06] MEDS ORDERED: methylPREDNISolone 60 MG in Sodium Chloride 0.9% 50 ML IVPB SCH (16:00)
[2018-04-06] MEDS: Albuterol-Ipratrop 3 mg / 0.5 (3 ml) UD INH SCH ×2 (17:08→20:43)
[2018-04-06] MEDS ORDERED: Sodium Chloride 3% for Inhalation 4 ML VIAL.NEB IH PRN (21:18)
--- NOTE | 2018-04-06 21:53 | CARD ---
APPROVED REPORT Date of service: 04/06/2018 EKG Measurement Heart [id number] <Conclusion> Sinus rhythm Left axis deviation Left bundle branch block Abnormal ECG
[2018-04-06] MEDS: Promethazine 12.5 mg/10 ml Syrup PO PRN (22:03)
[2018-04-07] MEDS: Albuterol-Ipratrop 3 mg / 0.5 (3 ml) UD INH SCH ×4 (07:37→20:08)
[2018-04-07] MEDS ORDERED: Patient's Own Med (Losartan/Hydrochlorothiazide [Hyzaar 100-12.5 Tablet] 1 TAB) PO SCH (09:00)
[2018-04-07] MEDS: Azithromycin 500 MG in Sodium Chloride 0.9% 250 ML IVPB SCH (09:20)
[2018-04-07] MEDS: Pantoprazole 40 mg EC Tab PO SCH (09:38)
[2018-04-07] MEDS: Fluticasone-Salmeterol 250-50mcg Diskus IH SCH ×2 (10:07→21:42)
--- NOTE | 2018-04-07 11:19 | CP.PCM.CON ---
History of Present Illness - History of Present Illness History of Present Illness: THE PATIENT IS A 73 YEAR OLD FEMALE WHO WAS ADMITTED WITH ACUTE EXACERBATION OF COPD FOLLOWING 3 DAYS OF SOB AND COUGHING. SHE WAS FOUND TO HAVE SEVERE WHEEZING IN THE ER AND WAS TREATED AND ADMITTED. SHE STATES THAT SHE FEELS A LITTLE BETTER TODAY. SHE HAS A LBBB ON HER EKG AND I WAS ASKED TO SEE HER FOR THAT. SHE HAS HYPERTENSION BUT DENIES ANY CHEST PAIN OR CAD HISTORY. Past Patient History - Infectious Disease Hx of Infectious Diseases: None - Past Medical History & Family History Past Medical History?: Yes - Past Social History Smoking Status: Former Smoker - CARDIAC Hx Cardiac Disorders: Yes Hx Angina: No Hx Atrial Fibrillation: No Hx Cardia Arrhythmia: No Hx Circulatory Problems: No Hx Congestive Heart Failure: No Hx Heart Attack: No Hx Heart Murmur: No Hx Heart Transplant: No Hx Hypercholesterolemia: No Hx Hypertension: Yes Hx Hypotension: No Hx Internal Defibrillator: No Hx Mitral Valve Prolapse: No Hx Pacemaker: No Hx Peripheral Edema: No Hx Peripheral Vascular Disease: No - PULMONARY Hx Respiratory Disorders: Yes Hx Asthma: No Hx Bronchitis: No Hx Chronic Obstructive Pulmonary Disease (COPD): Yes Hx Emphysema: Yes Hx Lung Cancer: No Hx Pneumonia: No Hx Pulmonary Edema: No Hx Pulmonary Embolism: No Hx Respiratory Aspiration: No Hx Respiratory Tract Infection: No Hx Sleep Apnea: No Hx Tuberculosis: No - NEUROLOGICAL Hx Neurological Disorder: No Hx Alzheimer's Disease: No HX Cerebrovascular Accident: No Hx Dementia: No Hx Dizziness: No Hx Meningitis: No Hx Migraine: No Hx Multiple Sclerosis: No Hx Paralysis: No Hx Parkinson's Disease: No Hx Seizures: No Hx Syncope: No Hx Transient Ischemic Attacks (TIA): No Hx Vertigo: No - HEENT Hx HEENT Problems: No Hx Blind: No Hx Cataracts: No Hx Deafness: No Hx Difficulty Chewing: No Hx Epistaxis: No Hx Glaucoma: No Hx Macular Degeneration: No Hx Sinusitis: No - RENAL Hx Chronic Kidney Disease: No Hx Dialysis: No Hx Kidney Stones: No Hx Neurogenic Bladder: No Hx Pyelonephritis: No Hx Renal (Kidney) Cancer: No Hx Renal Failure: No - ENDOCRINE/METABOLIC Hx Endocrine Disorders: No Hx Adrenal Cancer: No Hx Diabetes Insipidus: No Hx Diabetes Mellitus Type 1: No Hx Diabetes Mellitus Type 2: No Hx Hyperthyroidism: No Hx Hypothyroidism: No Hx Systemic Lupus Erythematosus: No - HEMATOLOGICAL/ONCOLOGICAL Hx Blood Disorders: No Hx AIDS: No Hx Anemia: No Hx Blood Transfusions: No Hx Blood Transfusion Reaction: No Hx Bruising: No Hx Cancer: No Hx Chemotherapy: No Hx Cirrhosis: No Hx Gum Bleeding: No Hx Hemophilia: No Hx Hepatitis A: No Hx Hepatitis B: No Hx Hepatitis C: No Hx Human Immunodeficiency Virus (HIV): No Hx Leukemia: No Hx Metastesis: No Hx Shingles: No Hx Sickle Cell Disease: No Hx Unexplained Bleeding: No Hx von Willebrand's Disease: No - INTEGUMENTARY Hx Dermatological Problems: No Hx Basil Cell: No Hx Barragan: No Hx Cellulitis: No Hx Eczema: No Hx Melanoma: No Hx Psoriasis: No Hx Squamous Cell: No - MUSCULOSKELETAL/RHEUMATOLOGICAL Hx Musculoskeletal Disorders: No Hx Arthritis: No Hx Back Pain: No Hx Degenerative Joint Disease: No Hx Falls: No Hx Fractures: No Hx Gout: No Hx Herniated Disk: No Hx Myasthenia Gravis: No Hx Osteoarthritis: No Hx Osteomyelitis: No Hx Osteoporosis: No Hx Rhabdomyolysis: No Hx Rheumatoid Arthritis: No Hx Spinal Stenosis: No Hx Unsteady Gait: No - GASTROINTESTINAL Hx Gastrointestinal Disorders: No Hx Bowel Surgery: No Hx Clostridium Difficile: No Hx Colitis: No Hx Colostomy: No Hx Constipation: No Hx Crohn's Disease: No Hx Diarrhea: No Hx Diverticulitis: No Hx Esophageal Varices: No Hx Fatty Liver Disease: No Hx Gall Bladder Disease: No Hx Gastritis: No Hx Gastroesophageal Reflux: No Hx Hemorrhoids: No Hx Ileostomy: No Hx Irritable Bowel: No Hx Liver Failure: No Hx Nausea: No Hx Pancreatitis: No HX Swallowing Problems: No Hx Ulcer: No Hx Vomiting: No - GENITOURINARY/GYNECOLOGICAL Hx Genitourinary Disorders: No Hx Bladder Cancer: No Hx Bladder Stone: No Hx Cervical Cancer: No Hx Hematuria: No Hx Incontinence: No Hx Ovarian Cancer: No Hx Postmenopausal Bleeding: No Hx Reproductive Disorders: No Hx Sexually Transmitted Disorders: No Hx Uterine Cancer: No Hx Urinary Tract Infection: No - PSYCHIATRIC Hx Psychophysiologic Disorder: No Hx Anxiety: No Hx Bipolar Disorder: No Hx Depression: No Hx Emotional Abuse: No Hx Hallucinations: No Hx Panic Symptoms: No Hx Paranoia: No Hx Post Traumatic Stress Disorder: No Hx Psychosis: No Hx Physical Abuse: No Hx Schizophrenia: No Hx Sexual Abuse: No Hx Substance Use: No - SURGICAL HISTORY Hx Abdominal Aortic Aneurysm Repair: No Hx Amputation: No Hx Angiogram: No Hx Angioplasty: No Hx Appendectomy: No Hx Arteriovenous Shunt: No Hx Arthroscopy: No Hx Bile Duct Stent: No Hx Breast Biopsy: No Hx Cataract Extraction: No Hx Cardiac Catheterization: No Hx Carotid Endarterectomy: No Hx Section: No Hx Cholecystectomy: No Hx Coronary Artery Bypass Graft: No Hx Coronary Stent: No Hx Dilation and Curettage: No Hx Eye Surgery: No Hx Femoral-Popliteal Bypass Graft: No Hx Gastric Bypass Surgery: No Hx Herniorrhaphy: No Hx Hysterectomy: No Hx Joint Replacement: No Hx Kidney Transplant: No Hx Liver Transplant: No Hx Mastectomy: No Hx Musculoskeletal Surgery: No Hx Open Heart Surgery: No Hx Open Reduction Internal Fixation: No Hx Orthopedic Surgery: No Hx Parathyroidectomy: No Hx Penile Implant: No Hx Pulmonary Surgery: No Hx Splenectomy: No Hx Thyroidectomy: No Hx Tonsillectomy: No Hx Tubal Ligation: No Hx Valve Replacement: No Hx Vascular Surgery: No Hx Vascular Access Device: No - ANESTHESIA Hx Anesthesia: No Hx Anesthesia Reactions: No Hx Malignant Hyperthermia: No Has any member of the family had a problem w/ anesthesia?: No Meds Allergies/Adverse Reactions: Allergies Allergy/AdvReac Type Severity Reaction Status Date / Time No Known Allergies Allergy Verified 11/17/17 17:05 - Medications Medications: Current Medications Albuterol/Ipratropium (Duoneb 3 Mg/0.5 Mg (3 Ml) Ud) 3 ml INH RQID [facility] Last Admin: 04/07/18 07:37 Dose: 3 ml Hydrochlorothiazide (Microzide) 12.5 mg PO DAILY [facility] Last Admin: 04/07/18 09:41 Dose: 12.5 mg Azithromycin 500 mg/ Sodium (Chloride) 250 mls @ 250 mls/hr IVPB DAILY [facility]; Protocol Last Admin: 04/07/18 09:20 Dose: 250 mls/hr Losartan Potassium (Cozaar) 100 mg PO DAILY [facility] Last Admin: 04/07/18 09:38 Dose: 100 mg Methylprednisolone (Solu-Medrol) 60 mg IV Q8H [facility] Last Admin: 04/07/18 09:37 Dose: 60 mg Metoprolol Tartrate (Lopressor) 50 mg PO Q12 [facility] Last Admin: 04/07/18 09:37 Dose: 50 mg Pantoprazole Sodium (Protonix Ec Tab) 40 mg PO DAILY [facility] Last Admin: 04/07/18 09:38 Dose: 40 mg Promethazine HCl (Phenergan Syrup) 12.5 mg PO Q6 PRN PRN Reason: Cough Last Admin: 04/06/18 22:03 Dose: 12.5 mg Fluticasone/Salmeterol (Advair Diskus 250/50) 1 puff IH Q12 [facility] Last Admin: 04/07/18 10:07 Dose: 1 puff Physical Exam - Respiratory Exam Additional comments: BILAT EXPIRATORY WHEEZES - Cardiovascular Exam Cardiovascular Exam: REGULAR RHYTHM, +S1, +S2 - Extremities Exam Additional comments: NO LE EDEMA - Additional Findings Additional findings: EKG NSR, LBBB TROPONIN NORMAL PBNP NORMAL Results - Vital Signs Recent Vital Signs: Last Vital Signs Temp 97.8 F 04/07/18 08:33 Pulse 109 H 04/07/18 09:38 Resp 20 04/07/18 08:33 BP 115/69 04/07/18 09:38 Pulse Ox 99 04/07/18 08:33 - Labs Result Diagrams: 04/06/18 09:20 04/06/18 09:20 Assessment & Plan - Assessment and Plan (Free Text) Assessment: COPD EXACERBATION HYPERTENSION ABNORMAL EKG Plan: CONTINUE LOSARTAN, METOPROLOL, BRONCHODILATORS, STEROIDS AND ANTIBIOTICS NO SPECIAL TX OR WORK UP IS NEEDED FOR LBBB
--- NOTE | 2018-04-07 19:25 | HP ---
ADMIT HISTORY AND PHYSICAL HISTORY OF PRESENT ILLNESS: Ms. Newman is a 73-year-old female, who was recently discharged from the hospital because of the flu and exacerbation of chronic obstructive pulmonary disease. She is now readmitted because of progressively worsening shortness of breath for the past several days, associated with severe cough and spasms in the chest wall. She was seen in the emergency room short of breath, given multiple bronchodilator therapies and advised admission for workup and therapy. PAST MEDICAL HISTORY: Hypertension, chronic obstructive pulmonary disease and anxiety. FAMILY HISTORY: Nonrevealing. SOCIAL HISTORY: She quit smoking years ago. Does not drink and lives at home with her children. REVIEW OF SYSTEMS: Essentially remarkable for occasional shortness of breath. PHYSICAL EXAMINATION: GENERAL: The patient is alert, oriented, appears to still be in some distress from cough and shortness of breath. VITAL SIGNS: Remarkable for blood pressure of 106/66, pulse of 100-105, respiratory rate 20. She is febrile. O2 sat of 95% on nasal cannula oxygen. SKIN: Shows fair turgor. HEENT: Pupils are equal and reactive to light and accommodation. Mouth shows fair hygiene with mucous engorgement of pharynx. LUNGS: Poor aeration with wheezing and rales bilaterally with dullness at both bases. HEART: Regular. ABDOMEN: Soft, nontender, no organomegaly. EXTREMITIES: Shows trace pitting pedal edema. CENTRAL NERVOUS SYSTEM: Exam grossly intact. LABORATORY DATA: Chest x-ray shows no acute cardiopulmonary pathology. Laboratory data already reviewed. EKG is remarkable for regular sinus rhythm with left axis deviation, left bundle branch block. IMPRESSION: Acute exacerbation of chronic obstructive pulmonary disease, history of hypertension, history of anxiety disorder, abnormal EKG. PLAN: The plan is intravenous steroids as well as bronchodilators, oxygen and IV fluids already given. Would obtain cardiology evaluation to rule out cardiac pathology as cause of recurrent shortness of breath. Septic workup including sputum cultures already sent. Further therapy will depend on findings. Denys Pisano MD
[2018-04-07] MEDS: Promethazine 12.5 mg/10 ml Syrup PO PRN (21:43)
[2018-04-08] MEDS: Promethazine 12.5 mg/10 ml Syrup PO PRN (05:18)
[2018-04-08] MEDS: Albuterol-Ipratrop 3 mg / 0.5 (3 ml) UD INH SCH ×5 (07:53→23:43)
[2018-04-08] MEDS: Azithromycin 500 MG in Sodium Chloride 0.9% 250 ML IVPB SCH (08:55)
[2018-04-08] MEDS: Pantoprazole 40 mg EC Tab PO SCH (08:57)
[2018-04-08] MEDS: Fluticasone-Salmeterol 250-50mcg Diskus IH SCH ×2 (08:59→21:20)
--- NOTE | 2018-04-08 11:41 | CP.PCM.PN ---
Subjective - Date & Time of Evaluation Date of Evaluation: 04/08/18 Time of Evaluation: 11:41 - Subjective Subjective: STILL COUGHING C/O BACK PAINS NO CHEST PAINS SOB PERSISTS Objective - Vital Signs/Intake and Output Vital Signs (last 24 hours): Temp Pulse Resp BP Pulse Ox 97.5 F L 89 20 112/69 99 04/08/18 08:51 04/08/18 09:04 04/08/18 08:51 04/08/18 09:04 04/08/18 08:51 - Medications Medications: Current Medications Albuterol/Ipratropium (Duoneb 3 Mg/0.5 Mg (3 Ml) Ud) 3 ml INH RQID [facility] Last Admin: 04/08/18 07:53 Dose: 3 ml Hydrochlorothiazide (Microzide) 12.5 mg PO DAILY [facility] Last Admin: 04/08/18 08:57 Dose: 12.5 mg Azithromycin 500 mg/ Sodium (Chloride) 250 mls @ 250 mls/hr IVPB DAILY [facility]; Protocol Last Admin: 04/08/18 08:55 Dose: 250 mls/hr Losartan Potassium (Cozaar) 100 mg PO DAILY [facility] Last Admin: 04/08/18 08:57 Dose: 100 mg Methylprednisolone (Solu-Medrol) 60 mg IV Q8H [facility] Last Admin: 04/08/18 06:51 Dose: 60 mg Metoprolol Tartrate (Lopressor) 50 mg PO Q12 [facility] Last Admin: 04/08/18 09:04 Dose: 50 mg Pantoprazole Sodium (Protonix Ec Tab) 40 mg PO DAILY [facility] Last Admin: 04/08/18 08:57 Dose: 40 mg Promethazine HCl (Phenergan Syrup) 12.5 mg PO Q6 PRN PRN Reason: Cough Last Admin: 04/08/18 05:18 Dose: 12.5 mg Fluticasone/Salmeterol (Advair Diskus 250/50) 1 puff IH Q12 [facility] Last Admin: 04/08/18 08:59 Dose: 1 puff - Labs Labs: 04/06/18 09:20 04/06/18 09:20 - Constitutional Appears: Chronically Ill - Head Exam Head Exam: ATRAUMATIC, NORMAL INSPECTION, NORMOCEPHALIC - Eye Exam Eye Exam: EOMI, Normal appearance, PERRL Pupil Exam: NORMAL ACCOMODATION, PERRL - ENT Exam ENT Exam: Mucous Membranes Moist, Normal Exam - Neck Exam Neck Exam: Full ROM, Normal Inspection. absent: Lymphadenopathy - Respiratory Exam Respiratory Exam: Decreased Breath Sounds, Prolonged Expiratory Phase, Rales, NORMAL BREATHING PATTERN - Cardiovascular Exam Cardiovascular Exam: REGULAR RHYTHM, +S1, +S2. absent: Murmur - GI/Abdominal Exam GI & Abdominal Exam: Soft, Normal Bowel Sounds. absent: Tenderness - Rectal Exam Rectal Exam: NORMAL INSPECTION - Extremities Exam Extremities Exam: Full ROM, Normal Capillary Refill, Normal Inspection. absent: Joint Swelling, Pedal Edema - Back Exam Back Exam: NORMAL INSPECTION - Neurological Exam Neurological Exam: Alert, Awake, CN II-XII Intact, Normal Gait, Oriented x3 - Psychiatric Exam Psychiatric exam: Normal Affect, Normal Mood - Skin Skin Exam: Dry, Intact, Normal Color, Warm Assessment and Plan - Assessment and Plan (Free Text) Assessment: COPD EXAC BACK PAIN ARRYTHMIAS HTN ANXIETY Plan: SEE ORDERS
[2018-04-08] MEDS ORDERED: Oxycodone/Acetaminophen 5/325 mg Tab PO PRN (11:42)
[2018-04-08] MEDS: Promethazine/Cod 6.25mg-10mg/5ml Syr UD PO PRN ×2 (15:31→21:22)
[2018-04-08] MEDS: Lidocaine 5% Patch TD SCH (15:37)
[2018-04-09] MEDS: Albuterol-Ipratrop 3 mg / 0.5 (3 ml) UD INH SCH ×6 (05:01→23:12)
[2018-04-09] MEDS: Pantoprazole 40 mg EC Tab PO SCH (08:46)
[2018-04-09] MEDS: Fluticasone-Salmeterol 250-50mcg Diskus IH SCH ×2 (08:46→21:49)
[2018-04-09] MEDS: Azithromycin 500 MG in Sodium Chloride 0.9% 250 ML IVPB SCH (08:49)
[2018-04-09] MEDS: Lidocaine 5% Patch TD SCH (08:51)
--- NOTE | 2018-04-09 10:24 | CP.PCM.PN ---
Subjective - Date & Time of Evaluation Date of Evaluation: 04/09/18 Time of Evaluation: 10:24 - Subjective Subjective: cough with sob persist still has back pains Objective - Vital Signs/Intake and Output Vital Signs (last 24 hours): Temp Pulse Resp BP Pulse Ox 97.6 F 91 H 20 110/62 92 L 04/09/18 08:09 04/09/18 08:50 04/09/18 08:09 04/09/18 08:50 04/09/18 08:09 - Medications Medications: Current Medications Albuterol/Ipratropium (Duoneb 3 Mg/0.5 Mg (3 Ml) Ud) 3 ml INH RQ4 [facility] Last Admin: 04/09/18 07:02 Dose: 3 ml Hydrochlorothiazide (Microzide) 12.5 mg PO DAILY [facility] Last Admin: 04/09/18 08:46 Dose: 12.5 mg Azithromycin 500 mg/ Sodium (Chloride) 250 mls @ 250 mls/hr IVPB DAILY [facility]; Protocol Last Admin: 04/09/18 08:49 Dose: 250 mls/hr Lidocaine (Lidoderm) 1 ea TD DAILY [facility] Last Admin: 04/09/18 08:51 Dose: 1 ea Losartan Potassium (Cozaar) 100 mg PO DAILY [facility] Last Admin: 04/09/18 08:46 Dose: 100 mg Methylprednisolone (Solu-Medrol) 60 mg IV Q8H [facility] Last Admin: 04/09/18 08:50 Dose: 60 mg Metoprolol Tartrate (Lopressor) 50 mg PO Q12 [facility] Last Admin: 04/09/18 08:50 Dose: 50 mg Oxycodone/Acetaminophen (Percocet 5/325 Mg Tab) 1 tab PO Q6 PRN PRN Reason: Pain, severe (8-10) Stop: 04/11/18 11:43 Pantoprazole Sodium (Protonix Ec Tab) 40 mg PO DAILY [facility] Last Admin: 04/09/18 08:46 Dose: 40 mg Promethazine HCl/Codeine (Phenergan/Codeine Oral Syrup) 10 ml PO Q6 PRN PRN Reason: Cough Last Admin: 04/08/18 21:22 Dose: 10 ml Fluticasone/Salmeterol (Advair Diskus 250/50) 1 puff IH Q12 [facility] Last Admin: 02/24/19 08:46 Dose: 1 puff - Labs Labs: 04/06/18 09:20 04/06/18 09:20 - Constitutional Appears: In Acute Distress - Head Exam Head Exam: ATRAUMATIC, NORMAL INSPECTION, NORMOCEPHALIC - Eye Exam Eye Exam: EOMI, Normal appearance, PERRL Pupil Exam: NORMAL ACCOMODATION, PERRL - ENT Exam ENT Exam: Mucous Membranes Moist, Normal Exam - Neck Exam Neck Exam: Full ROM, Normal Inspection. absent: Lymphadenopathy - Respiratory Exam Respiratory Exam: Decreased Breath Sounds, Prolonged Expiratory Phase, Rales, Wheezes, NORMAL BREATHING PATTERN - Cardiovascular Exam Cardiovascular Exam: REGULAR RHYTHM, +S1, +S2. absent: Murmur - GI/Abdominal Exam GI & Abdominal Exam: Soft, Normal Bowel Sounds. absent: Tenderness - Rectal Exam Rectal Exam: NORMAL INSPECTION - Extremities Exam Extremities Exam: Full ROM, Normal Capillary Refill, Normal Inspection. absent: Joint Swelling, Pedal Edema - Back Exam Back Exam: NORMAL INSPECTION - Neurological Exam Neurological Exam: Alert, Awake, CN II-XII Intact, Normal Gait, Oriented x3 - Psychiatric Exam Psychiatric exam: Normal Affect, Normal Mood - Skin Skin Exam: Dry, Intact, Normal Color, Warm Assessment and Plan - Assessment and Plan (Free Text) Assessment: acute exac of coipd uri hypertension Plan: continue current rx add tesserlon pearls to help alleviate cough
[2018-04-09] MEDS: Promethazine/Cod 6.25mg-10mg/5ml Syr UD PO PRN ×2 (15:42→23:35)
[2018-04-10] MEDS: Albuterol-Ipratrop 3 mg / 0.5 (3 ml) UD INH SCH ×6 (05:02→23:50)
[2018-04-10 07:10] LABS: BASO % 0.1 % (0.0-2.0); LYMPH # 1.3 K/uL (1.0-4.3); LYMPH % 12.4 % (20.0-40.0); MEAN CELL VOLUME 89.4 fl (81.0-99.0); MEAN CORPUSCULAR HEMOGLOBIN 29.9 pg (27.0-31.0); MEAN CORPUSCULAR HGB CONC 33.4 g/dL (33.0-37.0); MONO # 0.3 K/uL (0.0-0.8); MONO % 2.5 % (0.0-10.0); NEUT # 8.8 K/uL (1.8-7.0); NRBC % 0.2 % (0.0-0.0); RBC 4.03 Mil/uL (3.80-5.20); RED CELL DISTRIBUTION WIDTH 13.7 % (11.5-14.5)
[2018-04-10 07:23] LABS: WHITE BLOOD COUNT 10.4 K/uL (4.8-10.8)
[2018-04-10 07:26] LABS: BLOOD UREA NITROGEN 38 mg/dl (7-17); CALCIUM 9.9 mg/dL (8.4-10.2); GFR NON-AFRICAN AMERICAN 54
[2018-04-10] MEDS: Fluticasone-Salmeterol 250-50mcg Diskus IH SCH ×2 (08:41→22:00)
[2018-04-10] MEDS: Lidocaine 5% Patch TD SCH (08:42)
[2018-04-10] MEDS: Pantoprazole 40 mg EC Tab PO SCH (08:47)
[2018-04-10] MEDS: Azithromycin 500 MG in Sodium Chloride 0.9% 250 ML IVPB SCH (08:57)
--- NOTE | 2018-04-10 09:20 | CP.PCM.PN ---
Subjective - Date & Time of Evaluation Date of Evaluation: 04/10/18 Time of Evaluation: 08:30 - Subjective Subjective: BREATHING BETTER TODAY NO CHEST PAIN Objective - Vital Signs/Intake and Output Vital Signs (last 24 hours): Temp Pulse Resp BP Pulse Ox 97.5 F L 922 H 0 L 138/79 96 04/10/18 09:00 04/10/18 09:00 04/10/18 09:00 04/10/18 09:00 04/10/18 09:00 - Medications Medications: Current Medications Albuterol/Ipratropium (Duoneb 3 Mg/0.5 Mg (3 Ml) Ud) 3 ml INH RQ4 [facility] Last Admin: 04/10/18 07:42 Dose: 3 ml Benzonatate (Tessalon Perles) 200 mg PO Q8 [facility] Last Admin: 04/10/18 08:46 Dose: 200 mg Hydrochlorothiazide (Microzide) 12.5 mg PO DAILY [facility] Last Admin: 04/10/18 08:48 Dose: 12.5 mg Azithromycin 500 mg/ Sodium (Chloride) 250 mls @ 250 mls/hr IVPB DAILY [facility]; Protocol Last Admin: 04/10/18 08:57 Dose: 250 mls/hr Lidocaine (Lidoderm) 1 ea TD DAILY [facility] Last Admin: 04/10/18 08:42 Dose: 1 ea Losartan Potassium (Cozaar) 100 mg PO DAILY [facility] Last Admin: 04/10/18 08:48 Dose: 100 mg Methylprednisolone (Solu-Medrol) 60 mg IV Q8H [facility] Last Admin: 04/10/18 08:41 Dose: 60 mg Metoprolol Tartrate (Lopressor) 50 mg PO Q12 [facility] Last Admin: 04/10/18 08:47 Dose: 50 mg Oxycodone/Acetaminophen (Percocet 5/325 Mg Tab) 1 tab PO Q6 PRN PRN Reason: Pain, severe (8-10) Stop: 04/11/18 11:43 Pantoprazole Sodium (Protonix Ec Tab) 40 mg PO DAILY [facility] Last Admin: 04/10/18 08:47 Dose: 40 mg Promethazine HCl/Codeine (Phenergan/Codeine Oral Syrup) 10 ml PO Q6 PRN PRN Reason: Cough Last Admin: 04/09/18 23:35 Dose: 10 ml Fluticasone/Salmeterol (Advair Diskus 250/50) 1 puff IH Q12 [facility] Last Admin: 04/10/18 08:41 Dose: 1 puff - Labs Labs: 04/10/18 06:25 04/10/18 06:25 - Respiratory Exam Additional comments: CLEARER BILAT - Cardiovascular Exam Cardiovascular Exam: REGULAR RHYTHM, +S1, +S2 - Extremities Exam Additional comments: NO LE EDEMA Assessment and Plan - Assessment and Plan (Free Text) Assessment: COPD EXACERBATION HYPERTENSION LBBB ON EKG Plan: CONTINUE LOSARTAN, METOPROLOL, HCTZ, BRONCHODILATORS AND ANTIBIOTICS
--- NOTE | 2018-04-10 09:27 | CP.PCM.PN ---
Subjective - Date & Time of Evaluation Date of Evaluation: 04/10/18 Time of Evaluation: 09:27 - Subjective Subjective: COPD IMPROVING STILL COUGHING NO CHEST PAINS Objective - Vital Signs/Intake and Output Vital Signs (last 24 hours): Temp Pulse Resp BP Pulse Ox 97.5 F L 922 H 0 L 138/79 96 04/10/18 09:00 04/10/18 09:00 04/10/18 09:00 04/10/18 09:00 04/10/18 09:00 - Medications Medications: Current Medications Albuterol/Ipratropium (Duoneb 3 Mg/0.5 Mg (3 Ml) Ud) 3 ml INH RQ4 [facility] Last Admin: 04/10/18 07:42 Dose: 3 ml Benzonatate (Tessalon Perles) 200 mg PO Q8 [facility] Last Admin: 04/10/18 08:46 Dose: 200 mg Hydrochlorothiazide (Microzide) 12.5 mg PO DAILY [facility] Last Admin: 04/10/18 08:48 Dose: 12.5 mg Azithromycin 500 mg/ Sodium (Chloride) 250 mls @ 250 mls/hr IVPB DAILY [facility]; Protocol Last Admin: 04/10/18 08:57 Dose: 250 mls/hr Lidocaine (Lidoderm) 1 ea TD DAILY [facility] Last Admin: 04/10/18 08:42 Dose: 1 ea Losartan Potassium (Cozaar) 100 mg PO DAILY [facility] Last Admin: 04/10/18 08:48 Dose: 100 mg Methylprednisolone (Solu-Medrol) 60 mg IV Q8H [facility] Last Admin: 04/10/18 08:41 Dose: 60 mg Metoprolol Tartrate (Lopressor) 50 mg PO Q12 [facility] Last Admin: 04/10/18 08:47 Dose: 50 mg Oxycodone/Acetaminophen (Percocet 5/325 Mg Tab) 1 tab PO Q6 PRN PRN Reason: Pain, severe (8-10) Stop: 04/11/18 11:43 Pantoprazole Sodium (Protonix Ec Tab) 40 mg PO DAILY [facility] Last Admin: 04/10/18 08:47 Dose: 40 mg Promethazine HCl/Codeine (Phenergan/Codeine Oral Syrup) 10 ml PO Q6 PRN PRN Reason: Cough Last Admin: 04/09/18 23:35 Dose: 10 ml Fluticasone/Salmeterol (Advair Diskus 250/50) 1 puff IH Q12 [facility] Last Admin: 04/10/18 08:41 Dose: 1 puff - Labs Labs: 04/10/18 06:25 04/10/18 06:25 - Constitutional Appears: No Acute Distress - Head Exam Head Exam: ATRAUMATIC, NORMAL INSPECTION, NORMOCEPHALIC - Eye Exam Eye Exam: EOMI, Normal appearance, PERRL Pupil Exam: NORMAL ACCOMODATION, PERRL - ENT Exam ENT Exam: Mucous Membranes Moist, Normal Exam - Neck Exam Neck Exam: Full ROM, Normal Inspection. absent: Lymphadenopathy - Respiratory Exam Respiratory Exam: Decreased Breath Sounds, Prolonged Expiratory Phase, Rales, Wheezes, NORMAL BREATHING PATTERN - Cardiovascular Exam Cardiovascular Exam: REGULAR RHYTHM, +S1, +S2. absent: Murmur - GI/Abdominal Exam GI & Abdominal Exam: Soft, Normal Bowel Sounds. absent: Tenderness - Rectal Exam Rectal Exam: NORMAL INSPECTION - Extremities Exam Extremities Exam: Full ROM, Normal Capillary Refill, Normal Inspection. absent: Joint Swelling, Pedal Edema - Back Exam Back Exam: NORMAL INSPECTION - Neurological Exam Neurological Exam: Alert, Awake, CN II-XII Intact, Normal Gait, Oriented x3 - Psychiatric Exam Psychiatric exam: Normal Affect, Normal Mood - Skin Skin Exam: Dry, Intact, Normal Color, Warm Assessment and Plan - Assessment and Plan (Free Text) Assessment: COPD EXAC URI HTN LBB Plan: CONTINUE CURRENT RX
[2018-04-10] MEDS: Promethazine/Cod 6.25mg-10mg/5ml Syr UD PO PRN ×3 (10:28→22:43)
[2018-04-10 23:58] VITALS: O2SAT 94
[2018-04-11] MEDS: Albuterol-Ipratrop 3 mg / 0.5 (3 ml) UD INH SCH ×2 (05:05→07:52)
[2018-04-11 08:00] VITALS: BP 136/78; PULSE 92; RESP 19; TEMP 97.7
--- NOTE | 2018-04-11 09:11 | CP.PCM.DIS ---
Provider - Provider Date of Admission: 04/06/18 10:12 Attending physician: Denys Garcia MD Consults: 04/07/18 07:46 Cardiology Consult Routine Comment: Consulting Provider: Lester Barnes Consulting Physician: Lester Barnes Reason for Consult: abnormal ekg Time Spent in preparation of Discharge (in minutes): 35 Diagnosis - Discharge Diagnosis (1) Upper respiratory infection Status: Acute Priority: High Comment: RESOLVED WITH IV ANTIBIOTIC RX (2) Hypertension Status: Chronic Comment: CONTROLLED ON RX (3) Left bundle branch block Status: Chronic (4) COPD exacerbation Status: Acute Priority: High Comment: IMPROVED WITH RX. WILL D/C ON PRESENT MEDS (5) Moderate COPD (chronic obstructive pulmonary disease) Status: Acute Priority: High Hospital Course - Lab Results Lab Results: Micro Results 04/09/18 20:17 Sputum Gram Stain - Final 04/06/18 10:40 Blood-Venous Blood Culture - Preliminary NO GROWTH AFTER 4 DAYS 04/06/18 10:00 Blood-Venous Blood Culture - Preliminary NO GROWTH AFTER 4 DAYS Most Recent Lab Values WBC 10.4 K/uL (4.8-10.8) D 04/10/18 06:25 RBC 4.03 Mil/uL (3.80-5.20) 04/10/18 06:25 Hgb 12.0 g/dL (12.0-16.0) 04/10/18 06:25 Hct 36.0 % (34.0-47.0) 04/10/18 06:25 MCV 89.4 fl (81.0-99.0) 04/10/18 06:25 MCH 29.9 pg (27.0-31.0) 04/10/18 06:25 MCHC 33.4 g/dL (33.0-37.0) 04/10/18 06:25 RDW 13.7 % (11.5-14.5) 04/10/18 06:25 Plt Count 232 K/uL (130-400) 04/10/18 06:25 MPV 9.0 fl (7.2-11.7) 04/10/18 06:25 Neut % (Auto) 85.0 % (50.0-75.0) H 04/10/18 06:25 Lymph % (Auto) 12.4 % (20.0-40.0) L 04/10/18 06:25 [place] % (Auto) 2.5 % (0.0-10.0) 04/10/18 06:25 Eos % (Auto) 0.0 % (0.0-4.0) 04/10/18 06:25 Baso % (Auto) 0.1 % (0.0-2.0) 04/10/18 06:25 Neut # (Auto) 8.8 K/uL (1.8-7.0) H 04/10/18 06:25 Lymph # (Auto) 1.3 K/uL (1.0-4.3) 04/10/18 06:25 [place] # (Auto) 0.3 K/uL (0.0-0.8) 04/10/18 06:25 Eos # (Auto) 0.0 K/uL (0.0-0.7) 04/10/18 06:25 Baso # (Auto) 0.0 K/uL (0.0-0.2) 04/10/18 06:25 pCO2 34 mm/Hg (35-45) L 04/06/18 09:30 pO2 86 mm/Hg (80-100) 04/06/18 09:30 HCO3 26.5 mmol/L (21-28) 04/06/18 09:30 ABG pH 7.48 (7.35-7.45) H 04/06/18 09:30 ABG Total CO2 26.3 mmol/L (22-28) 04/06/18 09:30 ABG O2 Saturation 99.2 % (95-98) H 04/06/18 09:30 ABG O2 Content 16.5 ML/dL (15-23) 04/06/18 09:30 ABG Base Excess 2.1 mmol/L (-2.0-3.0) 04/06/18 09:30 ABG Hemoglobin 12.2 g/dL (11.7-17.4) 04/06/18 09:30 ABG Carboxyhemoglobin 1.8 % (0.5-1.5) H 04/06/18 09:30 POC ABG HHb (Measured) 0.8 % (0.0-5.0) 04/06/18 09:30 ABG Methemoglobin 1.7 % (0.0-3.0) 04/06/18 09:30 ABG O2 Capacity 16.6 mL/dL (16-24) 04/06/18 09:30 Carloz Test Yes 04/06/18 09:30 A-a O2 Difference 100.0 mm/Hg 04/06/18 09:30 Hgb O2 Saturation 95.6 % (95.0-98.0) 04/06/18 09:30 FiO2 32.0 % 04/06/18 09:30 Sodium 137 mmol/l (132-148) 04/10/18 06:25 Potassium 3.8 MMOL/L (3.6-5.0) 04/10/18 06:25 Chloride 94 mmol/L (98-107) L 04/10/18 06:25 Carbon Dioxide 31 mmol/L (22-30) H 04/10/18 06:25 Anion Gap 16 (10-20) 04/10/18 06:25 BUN 38 mg/dl (7-17) H 04/10/18 06:25 Creatinine 1.0 mg/dl (0.7-1.2) 04/10/18 06:25 Est GFR ( Amer) > 60 04/10/18 06:25 Est GFR (Non-Af Amer) 54 04/10/18 06:25 Random Glucose 177 mg/dL (65-105) H 04/10/18 06:25 Calcium 9.9 mg/dL (8.4-10.2) 04/10/18 06:25 Troponin I < 0.0120 ng/mL (0.00-0.120) 04/06/18 09:20 NT-Pro-B Natriuret Pep 177 pg/ml (0-900) 04/06/18 09:20 Influenza Typ A,B (EIA) Negative for flu a/b (NEGATIVE) 04/06/18 10:30 Discharge Exam - Head Exam Head Exam: ATRAUMATIC, NORMAL INSPECTION, NORMOCEPHALIC Discharge Plan - Follow Up Plan Condition: FAIR Disposition: HOME/ ROUTINE Instructions: Exacerbation of COPD (DC) Additional Instructions: follow up with dr garcia 1 week Referrals: Denys Garcia MD [Family Provider] -
[2018-04-11] MEDS: Lidocaine 5% Patch TD SCH (09:23)
[2018-04-11] MEDS: Pantoprazole 40 mg EC Tab PO SCH (09:23)
[2018-04-11] MEDS: Fluticasone-Salmeterol 250-50mcg Diskus IH SCH (09:23)
[2018-04-11] MEDS: Azithromycin 500 MG in Sodium Chloride 0.9% 250 ML IVPB SCH (09:29)
[2018-04-11] MEDS: Promethazine/Cod 6.25mg-10mg/5ml Syr UD PO PRN (09:50)
--- NOTE | 2018-04-11 10:57 | CP.PCM.PN ---
Subjective - Date & Time of Evaluation Date of Evaluation: 04/11/18 Time of Evaluation: 08:45 - Subjective Subjective: NO CHEST PAIN BREATHING BETTER Objective - Vital Signs/Intake and Output Vital Signs (last 24 hours): Temp Pulse Resp BP Pulse Ox 97.7 F 92 H 19 136/78 94 L 04/11/18 07:59 04/11/18 09:24 04/11/18 07:59 04/11/18 09:24 04/11/18 07:59 - Labs Labs: 04/10/18 06:25 04/10/18 06:25 - Respiratory Exam Additional comments: CLEARER BILAT - Cardiovascular Exam Cardiovascular Exam: REGULAR RHYTHM, +S1, +S2 - Extremities Exam Additional comments: NO LE EDEMA Assessment and Plan - Assessment and Plan (Free Text) Assessment: COPD EXACERBATION-IMPROVED AND STABLE HYPERTENSION LBBB ON EKG Plan: FOR DISCHARGE TODAY CONTINUE METOPROLOL AND HCTZ PULMONARY MEDS PER DR LÓPEZ
== END 2018-04-11 10:53 | disposition home or self-care (01) | DRG 192 ==
LOC: H.ER 08:43 → H.ERHOLD 10:12 → H.MEDSURG1 12:55
PROVIDERS: ADMIT Internal Medicine Pulmonary Disease; ATTEND Internal Medicine Pulmonary Disease
DX: J43.9 Emphysema, unspecified (principal); I10 Essential (primary) hypertension; J06.9 Acute upper respiratory infection, unspecified; I44.7 Left bundle-branch block, unspecified; Z87.891 Personal history of nicotine dependence; F41.9 Anxiety disorder, unspecified; Z79.51 Long term (current) use of inhaled steroids